=== PATIENT | female | born 1940 | race Hispanic/Latino ===

== ENCOUNTER 2019-05-10 23:14 | Emergency (ER) | payer MEDICARE, MEDICAID ==
[~2019-05-10] VITALS: Ht 157.5 cm; Wt 81.8 kg
[2019-05-10 23:53] LABS: HEMATOCRIT 42.7 % (37.0-47.0); HEMOGLOBIN 13.2 g/dl (12.0-16.0); IMMATURE GRANULOCYTES 0.2 % (0.0-5.0); MEAN CELL VOLUME 89.1 fL CALC (80.0-100.0); MEAN CORPUSCULAR HGB 27.6 pG CALC (26.0-32.0); MEAN CORPUSCULAR HGB CONC 30.9 g/L CALC (32.0-36.0); NEUT# 5.29 thou/uL (2.00-7.15); RED BLOOD COUNT 4.79 mill/uL (4.20-5.60); RED CELL DISTRI WIDTH 17.6 % (11.5-15.5)
[2019-05-11 00:21] LABS: ACT PARTIAL THROMBO TIME 27.1 SECONDS (20.0-32.5); PROTHROMBIN TIME 10.3 SECONDS (9.0-12.5)
[2019-05-11 00:22] LABS: ALBUMIN 4.5 g/dL (3.2-5.0); ALKALINE PHOSPHATASE 64 u/l (38-126); AMYLASE 52 u/l (30-110); ANION GAP 17 (6-22 (CALC)); BILIRUBIN, TOTAL 0.3 mg/dL (0.0-1.4); BUN 13 mg/dL (8-23); BUN/CREATININE RATIO 19 (12-20 (CALC)); CARBON DIOXIDE 28 mmol/l (22-30); CHLORIDE 99 mmol/l (95-108); CREATININE 0.7 mg/dL (0.5-1.0); GFR > 60 ML/MIN (>=60 (CALC)); GFR FOR AFR.AMER. > 60 ML/MIN (>=60 (CALC)); LIPASE 78 u/l (23-300); SGOT/AST 26 u/l (9-36); SODIUM 140 mmol/l (137-146); TOTAL PROTEIN 8.2 g/dL (6.3-8.2)
[2019-05-11 00:37] LABS: MYOGLOBIN 45 ng/mL (0 - 62)
[2019-05-11] MEDS ORDERED: TORADOL PO (00:54)
[2019-05-11 01:20] VITALS: BP 155/66
== END 2019-05-11 01:20 | disposition home or self-care (01) ==
LOC: ED 23:14
PROVIDERS: Family Medicine
DX: R07.89 Other chest pain (principal)

== ENCOUNTER 2019-09-24 | Emergency (ER) | payer MEDICARE, MEDICAID ==
[~2019-09-24] MED LIST: TORADOL PO
[2019-09-24 16:55] LABS: HEMATOCRIT 40.3 % (37.0-47.0); HEMOGLOBIN 12.7 g/dl (12.0-16.0); IMMATURE GRANULOCYTES 0.6 % (0.0-5.0); MEAN CELL VOLUME 86.7 fL CALC (80.0-100.0); MEAN CORPUSCULAR HGB 27.3 pG CALC (26.0-32.0); MEAN CORPUSCULAR HGB CONC 31.5 g/L CALC (32.0-36.0); NEUT# 6.84 thou/uL (2.00-7.15); RED BLOOD COUNT 4.65 mill/uL (4.20-5.60); RED CELL DISTRI WIDTH 14.9 % (11.5-15.5)
[2019-09-24 17:01] LABS: PROTHROMBIN TIME 10.4 SECONDS (9.0-12.5)
[2019-09-24 17:02] LABS: ALBUMIN 4.3 g/dL (3.2-5.0); ALKALINE PHOSPHATASE 60 u/l (38-126); ANION GAP 13 (6-22 (CALC)); BILIRUBIN, TOTAL 0.3 mg/dL (0.0-1.4); BUN 17 mg/dL (8-23); BUN/CREATININE RATIO 28 (12-20 (CALC)); CARBON DIOXIDE 28 mmol/l (22-30); CHLORIDE 102 mmol/l (95-108); CREATININE 0.6 mg/dL (0.5-1.0); GFR > 60 ML/MIN (>=60 (CALC)); GFR FOR AFR.AMER. > 60 ML/MIN (>=60 (CALC)); POTASSIUM 4.2 mmol/l (3.5-5.1); SGOT/AST 20 u/l (9-36); SODIUM 138 mmol/l (137-146); TOTAL PROTEIN 7.9 g/dL (6.3-8.2)
[2019-09-24] MEDS ORDERED: TESSALON PERLE100 MG PO (17:36)
[2019-09-24] MEDS ORDERED: AUGMENTIN500TAB PO (17:36)
[2019-09-24] MEDS ORDERED: RHINOCORT (17:36)
== END 2019-09-24 19:00 | disposition home or self-care (01) ==
DX: J40 Bronchitis, not specified as acute or chronic (principal); J32.9 Chronic sinusitis, unspecified; R06.02 Shortness of breath; R07.9 Chest pain, unspecified

== ENCOUNTER 2019-10-01 11:29 | Observation (INO) | payer MEDICARE, MEDICAID ==
[~2019-10-01] VITALS: Ht 157.5 cm; Wt 87.0 kg
[~2019-10-01 11:29] MED LIST changes: +AUGMENTIN500TAB PO; +RHINOCORT; +TESSALON PERLE100 MG PO
[2019-10-01 12:41] LABS: HEMOGLOBIN 13.2 g/dl (12.0-16.0); IMMATURE GRANULOCYTES 0.4 % (0.0-5.0); MEAN CELL VOLUME 86.6 fL CALC (80.0-100.0); MEAN CORPUSCULAR HGB 27.2 pG CALC (26.0-32.0); MEAN CORPUSCULAR HGB CONC 31.4 g/L CALC (32.0-36.0); NEUT# 6.64 thou/uL (2.00-7.15); RED BLOOD COUNT 4.85 mill/uL (4.20-5.60); RED CELL DISTRI WIDTH 14.6 % (11.5-15.5)
[2019-10-01 12:54] LABS: ANION GAP 14 (6-22 (CALC)); BUN 12 mg/dL (8-23); BUN/CREATININE RATIO 24 (12-20 (CALC)); CARBON DIOXIDE 28 mmol/l (22-30); CHLORIDE 101 mmol/l (95-108); CREATININE 0.5 mg/dL (0.5-1.0); GFR > 60 ML/MIN (>=60 (CALC)); GFR FOR AFR.AMER. > 60 ML/MIN (>=60 (CALC)); POTASSIUM 3.8 mmol/l (3.5-5.1); SODIUM 138 mmol/l (137-146)
[2019-10-01 18:35] VITALS: BP 153/87
[2019-10-01 23:17] VITALS: BP 112/81
[2019-10-02 03:55] VITALS: BP 120/57
[2019-10-02 07:45] VITALS: BP 111/60
[2019-10-02 11:10] VITALS: BP 117/57
[2019-10-02] MEDS ORDERED: TESSALON PER100 MG PO (13:46)
[2019-10-02] MEDS ORDERED: ZITHROMAX500 MG PO (13:46)
[2019-10-02] MEDS ORDERED: MEDDOSEPAK PO (13:46)
== END 2019-10-02 14:09 | disposition home or self-care (01) ==
LOC: ED 11:29 → ED-I 13:21 → ED 13:35 → MS2 13:36 → ED-I 13:36 → MS2 17:17
PROVIDERS: Family Medicine; ADMIT Internal Medicine; ATTEND Internal Medicine
DX: J20.9 Acute bronchitis, unspecified (principal); J44.0 Chronic obstructive pulmonary disease with (acute) lower respiratory infection; M19.90 Unspecified osteoarthritis, unspecified site; R03.0 Elevated blood-pressure reading, without diagnosis of hypertension
CPT/HCPCS: G0378

== ENCOUNTER 2019-10-06 11:53 | Emergency (ER) | payer MEDICARE, MEDICAID ==
[~2019-10-06 11:53] MED LIST changes: +MEDDOSEPAK PO; +TESSALON PER100 MG PO; +ZITHROMAX500 MG PO
== END 2019-10-06 13:04 | disposition left against medical advice (07) ==
LOC: LWOBS 13:04 → ED 13:04
DX: Z91.19 Patient's noncompliance with other medical treatment and regimen (principal)

== ENCOUNTER 2020-03-20 10:12 | Emergency (ER) | payer MEDICARE, MEDICAID ==
[~2020-03-20] VITALS: Ht 157.5 cm; Wt 100.0 kg
[2020-03-20] MEDS ORDERED: MEDDOSEPAK PO ×2 (11:32)
[2020-03-20] MEDS ORDERED: ULTRAM50 MG PO (11:32)
[2020-03-20] MEDS ORDERED: KEFLEX500 MG PO ×2 (11:46)
[2020-03-20 11:54] VITALS: BP 158/59
== END 2020-03-20 11:52 | disposition home or self-care (01) ==
LOC: ED 10:12
DX: M19.042 Primary osteoarthritis, left hand (principal); M77.9 Enthesopathy, unspecified

== ENCOUNTER 2020-03-23 11:40 | Emergency (ER) | payer MEDICARE, MEDICAID ==
[~2020-03-23] VITALS: Ht 157.5 cm; Wt 92.0 kg
[~2020-03-23 11:40] MED LIST changes: +KEFLEX500 MG PO; +ULTRAM50 MG PO
[2020-03-23] MEDS ORDERED: TURMERIC500 MG PO (12:05)
[2020-03-23 13:31] VITALS: BP 143/71
== END 2020-03-23 13:31 | disposition home or self-care (01) ==
LOC: ED 11:40
DX: M77.9 Enthesopathy, unspecified (principal); M89.49 Other hypertrophic osteoarthropathy, multiple sites; F41.9 Anxiety disorder, unspecified; F32.9 Major depressive disorder, single episode, unspecified

== ENCOUNTER 2020-03-25 09:43 | Observation (INO) | payer MEDICARE, MEDICAID ==
[~2020-03-25] VITALS: Ht 157.5 cm; Wt 100.0 kg
[~2020-03-25 09:43] MED LIST changes: +TURMERIC500 MG PO
[2020-03-25 11:52] LABS: URINE BILIRUBIN - DIPSTICK NEGATIVE (NEGATIVE); URINE BLOOD DIPSTICK NEGATIVE (NEGATIVE); URINE COLOR YELLOW; URINE GLUCOSE - DIPSTICK NEGATIVE (NEGATIVE); URINE KETONE TRACE mg/dL (NEGATIVE); URINE LEUK ESTERASE NEGATIVE (NEGATIVE); URINE NITRITE - DIPSTICK NEGATIVE (Negative); URINE PROTEIN - DIPSTICK NEGATIVE (NEG-TRACE); URINE SPECIFIC GRAVITY 1.025; URINE UROBILINOGEN - DIPSTICK 0.2 E.U./dL (0.2)
[2020-03-25] MEDS ORDERED: DIVALPROEX SOD250 MG PO (11:54)
[2020-03-25] MEDS ORDERED: MEMANTINE HYDROC5 MG PO (11:54)
[2020-03-25] MEDS ORDERED: K-TAB20 MEQ PO (11:55)
[2020-03-25] MEDS ORDERED: LASIX20 MG PO (11:55)
[2020-03-25] MEDS ORDERED: TRAMADOL HCL50 MG PO (11:56)
[2020-03-25] MEDS ORDERED: MELATONIN5 M6 PO (11:56)
[2020-03-25] MEDS ORDERED: DONEPEZIL5 MG PO (11:57)
[2020-03-25] MEDS ORDERED: TURMERIC500 MG PO (11:58)
[2020-03-25] MEDS ORDERED: KEFLEX500 MG PO (11:58)
[2020-03-25 16:03] VITALS: BP 167/71
[2020-03-25] MEDS ORDERED: MECLIZINE25 MG PO (17:17)
[2020-03-25] MEDS ORDERED: SM ASA CHLD81 MG PO (17:24)
== END 2020-03-25 18:22 | disposition home health service (06) ==
LOC: ED 09:43 → ED-I 11:37 → ED 12:17 → ED-I 12:18 → MS2 13:05 → ED-I 13:23
PROVIDERS: Family Medicine; ADMIT Internal Medicine; ATTEND Internal Medicine
DX: G45.9 Transient cerebral ischemic attack, unspecified (principal); R42 Dizziness and giddiness; F03.90 Unspecified dementia, unspecified severity, without behavioral disturbance, psychotic disturbance, mood disturbance, and anxiety; G47.00 Insomnia, unspecified; I50.9 Heart failure, unspecified; F41.9 Anxiety disorder, unspecified; F32.9 Major depressive disorder, single episode, unspecified; R44.3 Hallucinations, unspecified; M19.90 Unspecified osteoarthritis, unspecified site; Z53.1 Procedure and treatment not carried out because of patient's decision for reasons of belief and group pressure

== ENCOUNTER 2020-03-28 20:46 | Emergency (ER) | payer MEDICARE, MEDICAID ==
[~2020-03-28] VITALS: Ht 157.5 cm; Wt 100.0 kg
[~2020-03-28 20:46] MED LIST changes: +DIVALPROEX SOD250 MG PO; +DONEPEZIL5 MG PO; +K-TAB20 MEQ PO; +LASIX20 MG PO; +MECLIZINE25 MG PO; +MELATONIN5 M6 PO; +MEMANTINE HYDROC5 MG PO; +SM ASA CHLD81 MG PO; +TRAMADOL HCL50 MG PO
[2020-03-28] MEDS ORDERED: LASIX20 MG PO (21:40)
[2020-03-28 22:10] VITALS: BP 164/77
== END 2020-03-28 22:10 | disposition home or self-care (01) ==
LOC: ED 20:46
DX: R60.0 Localized edema (principal); I50.9 Heart failure, unspecified

== ENCOUNTER 2020-04-09 11:36 | Emergency (ER) | payer MEDICARE, MEDICAID ==
[~2020-04-09] VITALS: Ht 157.5 cm; Wt 80.0 kg
[2020-04-09 12:35] VITALS: BP 117/61
== END 2020-04-09 13:45 | disposition home or self-care (01) ==
LOC: ED 11:36
DX: Z03.89 Encounter for observation for other suspected diseases and conditions ruled out (principal); F41.9 Anxiety disorder, unspecified; F32.9 Major depressive disorder, single episode, unspecified

== ENCOUNTER 2020-05-04 19:41 | Emergency (ER) | payer MEDICARE, MEDICAID ==
[~2020-05-04] VITALS: Ht 157.5 cm; Wt 82.0 kg
[2020-05-04] MEDS ORDERED: MELOXICAM15 MG PO (20:42)
[2020-05-04] MEDS ORDERED: MEMANTINE HYDROC5 MG PO (20:42)
[2020-05-04] MEDS ORDERED: DEPAKOTE ER250 M1 PO (20:43)
[2020-05-04] MEDS ORDERED: MECLIZINE25 MG PO (20:44)
[2020-05-04] MEDS ORDERED: FLEXERIL PO (22:03)
[2020-05-04] MEDS ORDERED: NAPROXEN500 MG PO (22:03)
[2020-05-04 22:16] VITALS: BP 140/61
== END 2020-05-04 22:14 | disposition home or self-care (01) ==
LOC: ED 19:41
DX: S23.3XXA Sprain of ligaments of thoracic spine, initial encounter (principal); I50.9 Heart failure, unspecified; X58.XXXA Exposure to other specified factors, initial encounter

== ENCOUNTER 2020-06-07 15:40 | Observation (INO) | payer MEDICARE, MEDICAID ==
[~2020-06-07] VITALS: Ht 157.5 cm; Wt 83.0 kg
[~2020-06-07 15:40] MED LIST changes: +DEPAKOTE ER250 M1 PO; +FLEXERIL PO; +MELOXICAM15 MG PO; +NAPROXEN500 MG PO
--- NOTE | 2020-06-07 16:10 | NUR ---
PATIENT TO ROOM STATING DARK STOOLS WHEN GOING TO BATHROOM. PATIENT REFUSING AND LAB STUDIES OR ANYTHING INVASIVE AT THIS TIME STATING RELIGOUS PREFERENCE. PRACTIONER AT BEDSIDE FOR MELANIE
[2020-06-07 16:57] LABS: HEMATOCRIT 40.8 % (37.0-47.0); HEMOGLOBIN 13.2 g/dl (12.0-16.0); RED BLOOD COUNT 4.48 mill/uL (4.20-5.60)
[2020-06-07 16:58] LABS: BASO% 0 % (0-3); EOS% 0 % (0-8); LYMPH% 32 % (15-41); MEAN CELL VOLUME 91.1 fL CALC (80.0-100.0); MEAN CORPUSCULAR HGB 29.5 pG CALC (26.0-32.0); MEAN CORPUSCULAR HGB CONC 32.4 g/dL CAL (32.0-36.0); MONO% 7 % (2-13); NEUT% 61 % (42-76); PLATELET COUNT 294 thou/uL (130-400); RED CELL DISTRI WIDTH 14.1 % (11.5-15.5)
--- NOTE | 2020-06-07 17:00 | NUR ---
ASSISTED TO BEDPAN.
[2020-06-07 17:13] LABS: ALBUMIN 3.9 g/dL (3.2-5.0); ALKALINE PHOSPHATASE 55 u/l (38-126); ANION GAP 11 (6-22 (CALC)); BILIRUBIN, TOTAL 0.2 mg/dL (0.0-1.4); BUN 12 mg/dL (8-23); BUN/CREATININE RATIO 19 (12-20 (CALC)); CARBON DIOXIDE 29 mmol/l (22-30); CHLORIDE 105 mmol/l (95-108); CREATININE 0.6 mg/dL (0.5-1.0); GFR > 60 ML/MIN (>=60 (CALC)); GFR FOR AFR.AMER. > 60 ML/MIN (>=60 (CALC)); LIPASE 79 u/l (23-300); POTASSIUM 4.2 mmol/l (3.5-5.1); SGOT/AST 19 u/l (9-36); SODIUM 141 mmol/l (137-146); TOTAL PROTEIN 6.8 g/dL (6.3-8.2)
--- NOTE | 2020-06-07 18:00 | NUR ---
MODERATE AMOUNT RED/BLACK STOOL IN BED FRIEDMAN. OCCULT BLOOD POSITIVE.
--- NOTE | 2020-06-07 18:14 | NUR ---
MLP AT BEDSIDE TO DISCUSS RESULTS AND POC.
--- NOTE | 2020-06-07 18:25 | NUR ---
MD AT BEDSIDE TO DISCUSS RESULTS AND POC.
--- NOTE | 2020-06-07 18:53 | NUR ---
REPORT GIVEN TO DAMEON KELLY.
--- NOTE | 2020-06-07 19:24 | NUR ---
A/O W/P/D SKIN DENIES WEAKNESS.NO VISION CHANGES NO SWEATS.NSR NO ECTOPY
--- NOTE | 2020-06-07 20:45 | NUR ---
W/P/D SKIN UP TO RR TO VOID NO WEAKINESSES NO DIZZINESS AMB WITH HER [id number] WITHOUT DIFF.
[2020-06-07 21:02] VITALS: BP 121/79
--- NOTE | 2020-06-07 21:03 | NUR ---
PT ARRIVES TO UNIT FROM ED AT 2103, ADMITTED TO ROOM 267.
--- NOTE | 2020-06-07 21:05 | NUR ---
PHONE REPORT TO NURSE VALENCIA ON MS
--- NOTE | 2020-06-07 21:10 | NUR ---
PT [id number] TO MS RM 267 IN STABLE CONDITION
--- NOTE | 2020-06-07 23:08 | NUR ---
PT PASSING MODERATE AMOUNTS BLOODY STOOL. PT CONFIRMS SHE IS A JEHOVAS WITNESS AND OBJECTS TO RECEIVING OF BLOOD AND BLOOD PRODUCTS. EXPLAINED TO PT SHE WILL BE HAVING AN EGD AND COLONOSCOPY. BOWEL PREP PROVIDED. PT IS RESISTANT TO TAKING BOWEL PREP. EXPLAINED TO PT IMPORTANCE OF BOWEL PREP FOR COLNOSCOPY TO BE EFFECTIVE. PT IS ANXIOUS ABOUT BLOOD IN STOOL BUT RESISTANT TO BOWEL PREP.
[2020-06-08] VITALS (7 sets, daily range): BP systolic 133–167; BP diastolic 60–89
--- NOTE | 2020-06-08 01:00 | NUR ---
PT DRINKING BOWEL PREP SLOWLY, CON'T TO ASK IF SHE HAS TO FINISH IT ALL. PT ENCOURAAGED TO DRINK MUCH AND QUICKLY SHE CAN TOLERATE.
--- NOTE | 2020-06-08 03:00 | NUR ---
PT HAS MADE LITTLE PROGRESS WITH BOWEL PREP, CON'T TO BE RESISTANT, ASKS AGAIN WHY SHE NEEDS TO TAKE BOWEL PREP. EXPLAINED RATIONALE AGAIN. PT ASKS TO SPEAK WITH DOCTOR ABOUT WHAT IS WRONG WITH HER AND WHAT SHES "HAVING DONE". INFORMED PT DR. CRUZ WOULD EXPLAIN PROCEDURE TO HER PRIOR TO HER SIGNING CONSENT.
--- NOTE | 2020-06-08 04:30 | NUR ---
ARTISTIC DIRECTOR CUONG REPORTS HE WAS UNABLE TO DRAW AM LABS AND HE WILL BE PASSING IT ON TO NEXT ARTISTIC DIRECTOR.
--- NOTE | 2020-06-08 06:26 | NUR ---
PT HAS FINISHED APPROXIMATELY HALF HER BOWEL PREP. STOOL IS NOW DARK BROWN THIN LIQUID W/ SOME SEDIMENT. NO MORE GROSS BLOOD NOTED. PT ENCOURAGED TO CON'T TO DRINK HER BOWEL PREP. PT ASKING FOR COFFEE AND BREAKFAST.
--- NOTE | 2020-06-08 07:15 | NUR ---
SPOKE WITH PACU ABOUT PATIENTS ASSESMENT, DIFFICULTY WITH BOWEL PREP AND THAT SHE CONTINUES TO TRY AND DRINK HER BOWEL PREP. ALSO ADVISED PACU THAT PT IS A JEHOVAHS WITNESS AND DOES NOT TAKE BLOOR OR BLOOD PRODUCTS.
[2020-06-08 08:10] LABS: HEMATOCRIT 40.8 % (37.0-47.0); HEMOGLOBIN 12.2 g/dl (12.0-16.0)
--- NOTE | 2020-06-08 08:10 | NUR ---
RECIEVED REPORT FROM LETICIA SIMMONS. PT RESTING IN SEMI FOWLERS POSITION UPON ENTERING ROOM. INTRODUCED SELF TO PT AND DISCUSSED POC. VITALS AND ASSESSMENT COMPLETED. PT IS A/O TO SELF RESPIRATIONS AND EVEN AND UNLABORED WIHT NO SIGSN OF DISTRESS NOTED. LUNG SOUNDS ARE CLEAR. HEART RHYTHM IS NORMAL WITH TELE IN PLACE. BOWEL SOUND SARE ACTIVE IN ALL QUADRANTS, LAST REPORTED BM 06/07/2020. RADIAL AND PEDAL PULSES ARE STRONG WITH NORMAL CPAILLARY REFILL.#20G IN LAC RUNNING WIHT IVF PER ORDER, SITE APPEARS HEALTHY AND PATENT. PT DENEIS ANY PAIN OR DIS COMFORTS AT THIS ITME. PT STATED " WHERE AM I AND WHY AM I HERE" WRITTER REOIENTED PT TO PLACE AND TIME. WRITTER EXPLAINED TO PT THAT BLOOD WAS PRESENT IN HER STOOL AND A PLANNED EGD AND COLONSCOPY WAS TO OCCUR. PT VERBAILZED UNDERSTANDING. WRITTER EDUCATED PT ON THE NEED OF DRINKING GO LIGHTLY. PT VERBAILZED UNDERSTANDING. ORDER OF RESPIRATORY PCR, SPECIMEN COLLECTED. ORDER FOR URINE, SPECIMEN OBTAINED. ALL SAFETY PRECAUTIONS ARE IN PLACE WIHT CALL LIGHT IN REACH. WILL CONTINUE TO MONITOR
[2020-06-08 10:23] LABS: URINE BILIRUBIN - DIPSTICK NEGATIVE (NEGATIVE); URINE BLOOD DIPSTICK LARGE (NEGATIVE); URINE GLUCOSE - DIPSTICK NEGATIVE (NEGATIVE); URINE KETONE NEGATIVE (NEGATIVE); URINE PROTEIN - DIPSTICK TRACE mg/dL (NEG-TRACE); URINE SPECIFIC GRAVITY 1.015; URINE UROBILINOGEN - DIPSTICK 0.2 E.U./dL (0.2)
[2020-06-08 10:30] LABS: URINE COLOR DK. YELLOW; URINE LEUK ESTERASE MODERATE (NEGATIVE); URINE NITRITE - DIPSTICK POSITIVE (Negative)
--- NOTE | 2020-06-08 10:30 | NUR ---
WRITTER NOTIFIED THAT EGD AND COLONOSCOPY WOULD BE SCHEDULED FOR 06/09/2020 AROUND 1200. PT NOTIFIED. ORDERS FOR CLEAR LIQUID DIET WITH NO RED RECIEVED.
[2020-06-08 10:31] LABS: URINE EPITHELIAL CELLS MODERATE EPI/hpf (0-FEW); URINE RBC 50-100 RBC/hpf (0-5)
[2020-06-08 10:32] LABS: URINE BACTERIA MODERATE hpf
--- NOTE | 2020-06-08 11:14 | NUR ---
REPORTED BP OF 167/77. PT RESTING IN SEMI FOWLERS POSITION TALKING ON PHONE. WILL CONTINUE TO MONITOR
--- NOTE | 2020-06-08 12:06 | NUR ---
PT RESTING IN SEMI FOWLERS POSITION TALKING ON PHONE UPON ENTERING ROOM. RESPIRATIONS ARE EVEN AND UNLABORED WITH NO SIGNS OF DISTRESS NOTED. PT RE-EDUCATED ON NEED FOR DRINKING GOLYTLEY PREP. PT VERBAILZED UNDERSTANDING. HALF STILL REMAINING. PT DENIES ANY PAIN OR NEEDS AT THIS TIME. ALL SAFETY PRECAUTIONS ARE IN PLACE WITH CALL LIGHT IN REACH. CHRISTINA CONTINUE TO MONITOR
--- NOTE | 2020-06-08 12:15 | NUR ---
WRITTER ASSISTED PT BACK FROM BATHROOM. STOOL IS LIGHT HERNANDEZ IN COLOR. PT EDUCATED ON NEED TO FINISH GOLYTLEY. PT VERBALIZED UNDERSTANDING. ALL SAFETY PRECAUTIONS ARE IN PLACE WITH CALL LIGHT IN REACH. CHRISTINA CONTINUE TO MONITOR
--- NOTE | 2020-06-08 13:34 | NUR ---
REASSESSMENT OF BP RESUTLING IN 133/60. PT SITTING IN CHAIR WATCHING TV. PT DENIES ANY PAIN OR DISCOMFORTS. ALL SAFETY PRECAUTIONS ARE IN PLACE WITH CALL LIGHT IN REACH.W ILL CONTINUE TO MONITOR
--- NOTE | 2020-06-08 16:30 | NUR ---
PT RESTING IN CHAIR. PT IS A/O WITH SOME CONFUSION. RESPIRATIONS ARE EVEN AND UNLABORED WITH NO SIGNS OF DSTRESS NOTED. IVF AND PROTONIX DRIP RUNNING WITH EASE. PT DENIES ANY PAIN OR DISCOMFORTS AT THIS TIME. PT EDUCATED ON NEED OF DRINKING GOLYTELY. PT VERBAILZED UNDERSTANDING. PT IS STILL HAVIG HERNANDEZ BLOODY STOOLS. ALL SFAETY PRECAUTIONS ARE IN PLACE WIHT CALL LIGHT IN REACH. WILL CONTINUE TO MONITOR
--- NOTE | 2020-06-08 19:00 | NUR ---
REPORT RECEIVED FROM Maryanne GERBER RN, CARE OF PTS ASSUMED AT THIS TIME.
--- NOTE | 2020-06-08 20:00 | NUR ---
PT HAS SEEMINGLY NOT COMPLETED ANY OF HER BOWEL PREP TODAY THEIR IS APPROXIMATELY THE SAME AMOUNT LEFT THIS AM. APPROXIMATELY HALF OF JUG. RE-EDUCATED PT ON IMPORTANCE OF BOWEL PREP FOR PROCEDURE. PT STATES SHE HAS NO IDEA WHAT "THEY ARE GOING TO DO TO HER TOMORROW", REMINDED PT THAT DR. MIRANDA SPOKE WITH HER TODAY AND EXPLAINED THE PROCEDURE. PT BECOMES AGITATED AND YELLS THAT SHE DID NOT SEE HER DOCTOR TODAY AND HER DOCTOR IS DR. WANG. PT BEGINS TO FRANTICALLY DESCRIBE HER GI BLEEDING AND THAT SHE IS A JEHOVAHS WITNESS AND IF SHE BLEEDS TO MUCH SHE WILL . ATTEMPTED TO CALM PT AND AGAIN ENCOURAGE COMPLIANCE WITH BOWEL PREP. PT AGREES AND 3 SMALL CUPS ARE SERVED FOR HER. PT STATES "THESE WILL BE GONE IN 20 MINUTES"
--- NOTE | 2020-06-08 21:00 | NUR ---
PT ON HER CELLPHONE SPEAKING VERY LOUDLY IN TURKISH AND PACING IN ROOM, PT HAS THROWN AWAY CUPS IN WHICH BOWEL PREP HAD BEEN SERVED FOR HER. SUSPECT PT MAY HAVE DUMPED THEM OUT.
--- NOTE | 2020-06-08 21:13 | NUR ---
CALL RECEIVED FROM A JHON LEYVA, IDENTIFIES HERSELF FAMILY FRIEND AND PTS CAREGIVER. EXPRESSES CONCERNS REGARDING IF PT IS RECEIVING HER PSYCH MEDICATIONS. SHE REPORTS LIST OF MEDICATIONS PRESCRIBED BY PTS PSYCHIATRIST, DANIELITO LIU. HOME MEDICATIN LIST UPDATED. JHON REPORTS THAT PT CALLED HER AND SEEMS AGITATED AND "LIKE SHE HASNT BEEN TAKING HER MEDICATIONS" STATES PT IS "BIPOLAR BUT DOESN'T KNOW IT" AND SHE "NEEDS TO BE ON HER MEDICINE".
--- NOTE | 2020-06-08 21:30 | NUR ---
PT TELL Sapna DE JESUS CNA THAT SHE NEEDS HER IV REMOVED IMMEDIATELY. SPOKE WITH Alexandru ELY APRN REGARDING PTS CONFUSION AND AGITATION. ORDER FOR SEROQUEL RECEIVED.
--- NOTE | 2020-06-08 22:00 | NUR ---
PT IN BATHROOM, FRANTICALLY SCRUBBING HER PANTS. PT IS UPSET BECAUSE SHE GOT BLOOD ON HER PANTS. CALMED PT DOWN. PT TOOK SEROQUEL AND NAMENDA, SEE E-MAR.
[2020-06-09] VITALS: BP 149/61
--- NOTE | 2020-06-09 00:50 | NUR ---
IV PUMP ALARMING OCCLUSION. PT HAS DISCONNECTED IV AND TIED TUBING IN A KNOT. TUBING INTIED AND IV RECONNECTED. IV SITE REMAINS INTACT AND PATENT. PT DENIES KNOTING OR DISCONNECTING IV.
[2020-06-09] MEDS ORDERED: DIVALPROEX SOD250 M1 PO (00:59)
[2020-06-09] MEDS ORDERED: K-DUR/KLOR-CON20 MEQ PO (01:01)
[2020-06-09] MEDS ORDERED: FUROSEMIDE20 MG PO (01:02)
[2020-06-09 04:00] VITALS: BP 155/78
--- NOTE | 2020-06-09 04:04 | NUR ---
PT FOUND TO HAVE PULLED OUT IV SITE. PT DENIES PULLING IV. CATH INTACT.
--- NOTE | 2020-06-09 06:49 | NUR ---
SPOKE W/ ANURADHA RN IN PACU REGARDING PTS REFUSING TO SIGN CONSENT AND TAKE BOWEL PREP WELL PHLEBOTMIST FAILED ATTEMPT TO DRAW AM LABS, R FA 22G STARTED X1 ATTEMPT, ATTEMPTED TO DRAW BLOOD WORK FROM IV INSUFFICIENT BLOOD FLOW TO COLLECT LABS. FURTHER ATTEMPTS HELD TO PRESERVE INTEGRITY OF IV. PT IS DROWSY BUT ROUSABLE. MARIBELL LING IN PACU ANESTHESIA WANTS CASE MANAGMENT TO BE INVOLVED WITH OBTAINING CONSENT AND ONLY EGD WILL BE DONE TODAY.
--- NOTE | 2020-06-09 07:52 | NUR ---
SRIRAM BENITEZ RN COME IN AND SPEAK TO THE PT. ENSURING HER SHE IS IN THE HOSPITAL. AND NEEDING TO HAVE A PROCEDURE COMPLETED. CASE MANAGEMENT INVOLVED TO GET CONSENT SIGNED.
[2020-06-09 08:26] LABS: MEAN CELL VOLUME 89.9 fL CALC (80.0-100.0); MEAN CORPUSCULAR HGB 27.8 pG CALC (26.0-32.0); RED BLOOD COUNT 4.67 mill/uL (4.20-5.60); RED CELL DISTRI WIDTH 14.7 % (11.5-15.5)
[2020-06-09 08:30] VITALS: BP 144/71
--- NOTE | 2020-06-09 08:30 | NUR ---
ASSESSMENT IS COMPLETED: IV SITE IS FREE FROM REDNESS OR EDEMA. HR IS REG,PULSES ARE STRONG X4, ABD IS SOFT WITH ACTIVE BS. BREATH SOUNDS ARE CLEAR BILATERALLY, CONTINUE TO OSBERVFE AND MONITOR,
[2020-06-09 10:30] VITALS: BP 146/78
--- NOTE | 2020-06-09 10:46 | NUR ---
SPOKE WITH CHAPIS DODSON FROM OR. DR CRUZ IS GOING TO [facility] AND WILL NOT BE ABLE TO DO PROCEDURE TODAY, WILL DO THIS TOMORROW IF CONSENT IS OBTAINED.
--- NOTE | 2020-06-09 12:16 | NUR ---
SPOKE WITH CHAPIS DODSON AND BRIAN VILLANUEVA RE: PT AND A DIET , AND THE PLAN FOR THE PT. EXPLAINED TO PT ABOUT DR CRUZ AND WILL DO PROCEDUREE TOMORROW.PT IS WANTING TO KNOW WHY WE HAVE TO WAIT. STATING" I SIGNED OMETHING YESTERDAY, ALSO SPOKE WITH MY DAUGHTER AND SHE KNOWS WHAT IS GOING ON AND WILL JUST DO IT".
--- NOTE | 2020-06-09 12:22 | NUR ---
SPOKE WITH DR CRUZ , CAN GOVE CLEAR LIQUIDS. IF CONSENT FOR BOTH THEN GIVE THE MAG CITRATE TONIGHT AND NPO AFTER MIDNIGHT.
--- NOTE | 2020-06-09 12:45 | NUR ---
PT REMAINS SITTING IN THECHAIR. NO DISTRESS NOTED. IV SITE IS FREE FROM REDNESS OR EDEMA. CONTINUE TO OBSERVE AND MONITOR.
--- NOTE | 2020-06-09 12:46 | NUR ---
SRIRAM BENITEZ RN SPEAK WITH PT RE: PROCEDURES TOMORROW. PT IS AGREEABLE, WANTING TO EAT.. INFORMED OR THE CONVERSATION WITH PT AND DR CRUZ,.WILL BE SENDING ANESTHESIA TO SEE PT. PER PROCESS CONTROL PROGRAMMER, HAS 3 DR'S THAT IS DEEMING PT COMPETENT TO MAKE DECISIONS.
--- NOTE | 2020-06-09 13:40 | NUR ---
ANESTHESIA IN SPEAKING WITH PT. AND GETTING CONSENT. EMMANUEL KELLY IN INTERPRETING FOR PT. EXPLAINED PROCEDURES OF ENDO AND COLONOSCOPY. WILL BE DONE TOMORROW.
--- NOTE | 2020-06-09 13:46 | NUR ---
ANESTHESIA ABLE TO OBTAIN CONSENT FOR THE PROCEDURES IN THE AM. EXPLAINED IN DETAIL WHAT IS HAPPENING. PT IS AGREEABLE.
[2020-06-09 15:00] VITALS: BP 132/70
--- NOTE | 2020-06-09 15:06 | NUR ---
IV SITE BECAME PUFFY. ATTEMPT X2 UNSUCCESSFUL. PT STATED" IT HURT TOO BAD" CONTINUE TO OSBERVE AND MONITOR.
--- NOTE | 2020-06-09 15:50 | NUR ---
IV SITE AGAIN ATTEMPTED X2, SWATTED AND DISLODGED THE IV SITE . CONTINUE TO OBSERVE AND MONITOR.
--- NOTE | 2020-06-09 16:15 | NUR ---
PT IV SITE OBTAINED AFTER 2ND ATTEMPT IN RH WITH #22. BY MARSHAL KELLY. CONTINUE TO OBSERVE AND MONITOR.
--- NOTE | 2020-06-09 16:52 | NUR ---
pt has been sitting in the chair. pt stated" no blood in my stool
[2020-06-09 18:34] VITALS: BP 162/87
--- NOTE | 2020-06-09 20:09 | NUR ---
PT. SITTING UP IN BED AND IS ALERT TO SELF AND PLACE, BUT IS FORGETFUL AND REPETETIVE. SPEAKING ALOT ON HER RESTORATIONIST AT THIS TIME. PT. IS RE-ORIENTED TO POC AND WILL NEED RE-INFORCEMENT OFTEN. PT. RE-EDUCATED ON NPO STATUS AT MIDNIGHT. IV SITE PATENT AT THIS TIME. PT. REPORTING NO BLEEDING FROM RECTUM. ENCOURAGED TO CALL FOR ANY NEEDS/PAIN. DENIES ANY ABDOMINAL DISCOMFORT. CALL LIGHT IS IN REACH. WILL CONTINUE TO MONITOR.
--- NOTE | 2020-06-09 21:30 | NUR ---
PT. SITTING UP IN CHAIR AND REMINDED TO FINISH MAG CITRATE; VERBALIZES UNDERSTANDING. WILL CONTINUE TO MONITOR.
--- NOTE | 2020-06-09 23:30 | NUR ---
PT. IS ASSISTED TO AND FROM THE BATHROOM AND VOIDED AND HAD A CLEAR BM. ASSISTED BACK INTO BED AND BED ALARM SET FORE SAFETY. PT. IS AWARE OF NPO DIET AFTER MIDNIGHT. PT. IS FORGETFUL. CALL LIGHT IS IN REACH.
[2020-06-10 00:05] VITALS: BP 158/74
[2020-06-10 04:24] VITALS: BP 152/84
--- NOTE | 2020-06-10 07:45 | NUR ---
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 AROUND 10:00 OR 10:15.
[2020-06-10 08:30] VITALS: BP 163/85
--- NOTE | 2020-06-10 08:30 | NUR ---
ASSESSMENT IS COMPLETED: IV SITE IS FREE FROM REDNESS OR EDEMA. HR IS REG,PULSES ARE STRONG X4, ABD IS SOFT WITH ACTIVE BS. BREATH SOUNDS ARE CLEAR BILATERALLY. TELE MONITOR IN PLACE. CONTINUE TO OSBERVE AND MONITOR.
[2020-06-10 10:50] VITALS: BP 148/69
--- NOTE | 2020-06-10 10:52 | NUR ---
CALLED CHAPIS IN OR INQUIRING WHEN THEY ARE GETTING PT. WAS TOLD 1 HOUR
--- NOTE | 2020-06-10 11:18 | NUR ---
OR STAFF CAME AND TRANSPORTING PT TO OR WITH FRIEND IN THE ROOM.
[2020-06-10 13:55] VITALS: BP 141/62
--- NOTE | 2020-06-10 14:00 | NUR ---
PT RETURNED FROM OR VIA STRETCHER . IMMEDIATELY WENT TO THE BATHROOM. UPON ARRIVAL.NO DISTRESS NOTED. IV SITE IS FREE FROM REDNESS OR EDEMA. CONTINEU TO OBSERVE AND MONITOR.
--- NOTE | 2020-06-10 14:00 | NUR ---
PT VS UPON RETURNING FROM OR IS : 157/74, 93 97.2.
--- NOTE | 2020-06-10 14:08 | NUR ---
INFORMING ELIZA A FRIEND RETURN FROM OR.
--- NOTE | 2020-06-10 17:30 | NUR ---
DISCHARGE INSTRUCTIONS GIVEN TO PT WAS INTERPREETED BY EMMANUEL KELLY , FRIEND IN THE ROOM. IV SITE WAS DISCONTINUED CATHETER INTACT, NO REDNESS OR EDEMA.
--- NOTE | 2020-06-10 18:13 | NUR ---
PT BEING DISCHARGED
--- NOTE | 2020-06-10 18:15 | NUR ---
Discharge instructions given. Patient verbalizes understanding of same. Discharged in stable condition via Wheelchair to Home with family. All belongings sent with pt.
== END 2020-06-10 18:13 | disposition home health service (06) ==
LOC: ED 15:40 → ED-I 16:32 → ED 19:43 → MS2 19:44
PROVIDERS: Nurse Practitioner Family; ADMIT Internal Medicine; ATTEND Internal Medicine
PROC: 0DJD8ZZ Inspection of Lower Intestinal Tract, Via Natural or Artificial Opening Endoscopic (ICD-10-PCS; principal; 2020-06-10)
PROC: 0DJ08ZZ Inspection of Upper Intestinal Tract, Via Natural or Artificial Opening Endoscopic (ICD-10-PCS; 2020-06-10)
DX: K57.31 Diverticulosis of large intestine without perforation or abscess with bleeding (principal); Q43.9 Congenital malformation of intestine, unspecified; K64.8 Other hemorrhoids; K31.7 Polyp of stomach and duodenum; K44.9 Diaphragmatic hernia without obstruction or gangrene; N39.0 Urinary tract infection, site not specified; I10 Essential (primary) hypertension; F03.90 Unspecified dementia, unspecified severity, without behavioral disturbance, psychotic disturbance, mood disturbance, and anxiety; F41.9 Anxiety disorder, unspecified; F32.9 Major depressive disorder, single episode, unspecified; I50.9 Heart failure, unspecified; Z20.828 Contact with and (suspected) exposure to other viral communicable diseases
CPT/HCPCS: J1756; S0164

== ENCOUNTER 2021-01-13 10:37 | Emergency (ER) | payer MEDICARE, MEDICAID ==
[~2021-01-13] VITALS: Ht 157.5 cm; Wt 174.0 kg
[~2021-01-13 10:37] MED LIST changes: +DIVALPROEX SOD250 M1 PO; +FUROSEMIDE20 MG PO; +K-DUR/KLOR-CON20 MEQ PO
[2021-01-13 14:14] LABS: HEMATOCRIT 44.9 % (37.0-47.0); IMMATURE GRANULOCYTES 0.3 % (0.0-5.0); MEAN CORPUSCULAR HGB 28.1 pG CALC (26.0-32.0); MEAN CORPUSCULAR HGB CONC 31.2 g/dL CAL (32.0-36.0); NEUT# 10.98 thou/uL (2.00-7.15); RED BLOOD COUNT 4.99 mill/uL (4.20-5.60); RED CELL DISTRI WIDTH 14.5 % (11.5-15.5)
[2021-01-13 14:18] LABS: URINE BILIRUBIN - DIPSTICK NEGATIVE (NEGATIVE); URINE BLOOD DIPSTICK NEGATIVE (NEGATIVE); URINE COLOR YELLOW; URINE GLUCOSE - DIPSTICK NEGATIVE (NEGATIVE); URINE KETONE 15 mg/dL (NEGATIVE); URINE LEUK ESTERASE NEGATIVE (NEGATIVE); URINE NITRITE - DIPSTICK NEGATIVE (Negative); URINE PH 6.5 (4.5-8.0); URINE PROTEIN - DIPSTICK NEGATIVE (NEG-TRACE); URINE SPECIFIC GRAVITY 1.015; URINE UROBILINOGEN - DIPSTICK 0.2 E.U./dL (0.2)
[2021-01-13 14:22] LABS: ALBUMIN 4.4 g/dL (3.2-5.0); ALKALINE PHOSPHATASE 66 u/l (38-126); ANION GAP 13 (6-22 (CALC)); BUN 13 mg/dL (8-23); BUN/CREATININE RATIO 23 (12-20 (CALC)); CARBON DIOXIDE 31 mmol/l (22-30); CHLORIDE 97 mmol/l (95-108); CREATININE 0.6 mg/dL (0.5-1.0); GFR > 60 ML/MIN (>=60 (CALC)); GFR FOR AFR.AMER. > 60 ML/MIN (>=60 (CALC)); LIPASE 50 u/l (23-300); POTASSIUM 4.6 mmol/l (3.5-5.1); SGOT/AST 20 u/l (9-36); SODIUM 137 mmol/l (137-146); TOTAL PROTEIN 7.9 g/dL (6.3-8.2)
[2021-01-13 14:27] LABS: BILIRUBIN, TOTAL 0.5 mg/dL (0.0-1.4)
[2021-01-13] MEDS ORDERED: ZOFRAN4 MG/TAB PO (17:39)
[2021-01-13 17:45] VITALS: BP 163/74
== END 2021-01-13 18:00 | disposition home or self-care (01) ==
LOC: ED 10:37
PROVIDERS: Emergency Medicine
DX: K52.9 Noninfective gastroenteritis and colitis, unspecified (principal); F41.9 Anxiety disorder, unspecified; F32.9 Major depressive disorder, single episode, unspecified; I50.9 Heart failure, unspecified; J44.9 Chronic obstructive pulmonary disease, unspecified

== ENCOUNTER 2021-02-22 14:31 | Emergency (ER) | payer MEDICARE, MEDICAID ==
[~2021-02-22] VITALS: Ht 157.5 cm; Wt 95.0 kg
[~2021-02-22 14:31] MED LIST changes: +ZOFRAN4 MG/TAB PO
[2021-02-22 16:42] VITALS: BP 138/82
== END 2021-02-22 18:00 | disposition home or self-care (01) ==
LOC: ED 14:31
PROC: 2W3CX1Z Immobilization of Right Lower Arm using Splint (ICD-10-PCS; principal; 2021-02-22)
DX: S52.501A Unspecified fracture of the lower end of right radius, initial encounter for closed fracture (principal); S52.611A Displaced fracture of right ulna styloid process, initial encounter for closed fracture; S00.83XA Contusion of other part of head, initial encounter; S00.211A Abrasion of right eyelid and periocular area, initial encounter; J44.9 Chronic obstructive pulmonary disease, unspecified; I50.9 Heart failure, unspecified; F32.9 Major depressive disorder, single episode, unspecified; F41.9 Anxiety disorder, unspecified; W01.0XXA Fall on same level from slipping, tripping and stumbling without subsequent striking against object, initial encounter; Y92.009 Unspecified place in unspecified non-institutional (private) residence as the place of occurrence of the external cause

== ENCOUNTER 2021-02-25 18:27 | Emergency (ER) | payer MEDICARE, MEDICAID ==
[~2021-02-25] VITALS: Ht 157.5 cm; Wt 85.0 kg
[2021-02-25 20:21] VITALS: BP 118/62
== END 2021-02-25 20:42 | disposition home or self-care (01) ==
LOC: ED 18:27
DX: G56.02 Carpal tunnel syndrome, left upper limb (principal); F41.9 Anxiety disorder, unspecified; F32.9 Major depressive disorder, single episode, unspecified; I50.9 Heart failure, unspecified; J44.9 Chronic obstructive pulmonary disease, unspecified; S62.101D Fracture of unspecified carpal bone, right wrist, subsequent encounter for fracture with routine healing; W19.XXXD Unspecified fall, subsequent encounter

== ENCOUNTER 2021-03-04 16:39 | Emergency (ER) | payer MEDICARE, MEDICAID ==
[~2021-03-04] VITALS: Ht 157.5 cm; Wt 80.0 kg
[2021-03-04 17:12] VITALS: BP 172/105
== END 2021-03-04 17:21 | disposition left against medical advice (07) ==
LOC: ED 16:39
DX: R07.9 Chest pain, unspecified (principal); J44.9 Chronic obstructive pulmonary disease, unspecified; F41.9 Anxiety disorder, unspecified; F32.9 Major depressive disorder, single episode, unspecified; I50.9 Heart failure, unspecified; Z91.19 Patient's noncompliance with other medical treatment and regimen

== ENCOUNTER 2021-03-06 12:02 | Emergency (ER) | payer MEDICARE, MEDICAID ==
[~2021-03-06] VITALS: Ht 157.5 cm; Wt 80.0 kg
[2021-03-06 12:30] VITALS: BP 144/66
== END 2021-03-06 13:30 | disposition home or self-care (01) ==
LOC: ED 12:02
PROC: 2W3CX1Z Immobilization of Right Lower Arm using Splint (ICD-10-PCS; principal; 2021-03-06)
DX: R07.89 Other chest pain (principal); Z46.89 Encounter for fitting and adjustment of other specified devices; J44.9 Chronic obstructive pulmonary disease, unspecified; I50.9 Heart failure, unspecified; F41.9 Anxiety disorder, unspecified; F32.9 Major depressive disorder, single episode, unspecified; Z98.890 Other specified postprocedural states

== ENCOUNTER 2022-08-14 11:53 | Emergency (ER) | payer MEDICARE, MEDICAID ==
[~2022-08-14] VITALS: Ht 157.5 cm; Wt 77.0 kg
[2022-08-14 14:35] LABS: BASO% 0.6 % (0-3); EOS% 1.6 % (0-8); HEMATOCRIT 44.2 % (37.0-47.0); HEMOGLOBIN 14.3 g/dl (12.0-16.0); IMMATURE GRANULOCYTES 0.1 % (0.0-5.0); LYMPH% 29.4 % (15-41); MEAN CELL VOLUME 90.6 fL CALC (80.0-100.0); MEAN CORPUSCULAR HGB 29.3 pG CALC (26.0-32.0); MEAN CORPUSCULAR HGB CONC 32.4 g/dL CAL (32.0-36.0); MONO% 9.8 % (2-13); NEUT# 5.01 thou/uL (2.00-7.15); NEUT% 58.5 % (42-76); RED BLOOD COUNT 4.88 mill/uL (4.20-5.60); RED CELL DISTRI WIDTH 14.4 % (11.5-15.5)
[2022-08-14 14:44] LABS: ALBUMIN 4.4 g/dL (3.2-5.0); ALKALINE PHOSPHATASE 51 u/l (38-126); ANION GAP 9 (6-22 (CALC)); BUN 14 mg/dL (8-23); BUN/CREATININE RATIO 24 (12-20 (CALC)); CARBON DIOXIDE 30 mmol/l (22-30); CHLORIDE 107 mmol/l (95-108); CREATININE 0.6 mg/dL (0.5-1.0); GFR FOR AFR.AMER. > 60 ML/MIN (>=60 (CALC)); GFR OTHER RACES > 60 ML/MIN (>=60 (CALC)); POTASSIUM 3.9 mmol/l (3.5-5.1); SGOT/AST 25 u/l (9-36); SODIUM 143 mmol/l (137-146); TOTAL PROTEIN 7.9 g/dL (6.3-8.2)
[2022-08-14 14:51] LABS: BILIRUBIN, TOTAL 0.1 mg/dL (0.0-1.4)
[2022-08-14 15:52] VITALS: BP 147/77
== END 2022-08-14 16:08 | disposition home or self-care (01) ==
LOC: ED 11:53
PROVIDERS: Emergency Medicine
DX: S09.90XA Unspecified injury of head, initial encounter (principal); F41.9 Anxiety disorder, unspecified; F32.A Depression, unspecified; I50.9 Heart failure, unspecified; J44.9 Chronic obstructive pulmonary disease, unspecified; W19.XXXA Unspecified fall, initial encounter; Y92.009 Unspecified place in unspecified non-institutional (private) residence as the place of occurrence of the external cause

== ENCOUNTER 2022-09-14 12:59 | Emergency (ER) | payer MEDICARE, MEDICAID ==
[~2022-09-14] VITALS: Ht 157.5 cm; Wt 75.0 kg
[2022-09-14 15:14] VITALS: BP 149/101
[2022-09-14 15:28] VITALS: BP 151/81
[2022-09-14 15:30] VITALS: BP 155/80
[2022-09-14 15:39] LABS: BASO% 0.4 % (0-3); EOS% 1.6 % (0-8); HEMATOCRIT 44.8 % (37.0-47.0); HEMOGLOBIN 14.3 g/dl (12.0-16.0); IMMATURE GRANULOCYTES 0.2 % (0.0-5.0); LYMPH% 28.3 % (15-41); MEAN CELL VOLUME 90.7 fL CALC (80.0-100.0); MEAN CORPUSCULAR HGB 28.9 pG CALC (26.0-32.0); MEAN CORPUSCULAR HGB CONC 31.9 g/dL CAL (32.0-36.0); MONO% 7.7 % (2-13); NEUT# 5.87 thou/uL (2.00-7.15); NEUT% 61.8 % (42-76); RED BLOOD COUNT 4.94 mill/uL (4.20-5.60); RED CELL DISTRI WIDTH 14.4 % (11.5-15.5)
[2022-09-14 15:44] LABS: URINE BILIRUBIN - DIPSTICK NEGATIVE (NEGATIVE); URINE BLOOD DIPSTICK NEGATIVE (NEGATIVE); URINE COLOR YELLOW; URINE GLUCOSE - DIPSTICK NEGATIVE (NEGATIVE); URINE KETONE NEGATIVE (NEGATIVE); URINE LEUK ESTERASE NEGATIVE (NEGATIVE); URINE PH 5.5 (4.5-8.0); URINE PROTEIN - DIPSTICK NEGATIVE (NEG-TRACE); URINE SPECIFIC GRAVITY 1.025; URINE UROBILINOGEN - DIPSTICK 0.2 E.U./dL (0.2)
[2022-09-14 15:47] LABS: URINE NITRITE - DIPSTICK NEGATIVE (Negative)
[2022-09-14 15:53] LABS: ALBUMIN 4.8 g/dL (3.2-5.0); ALKALINE PHOSPHATASE 64 u/l (38-126); ANION GAP 13 (6-22 (CALC)); BUN 11 mg/dL (8-23); BUN/CREATININE RATIO 17 (12-20 (CALC)); CARBON DIOXIDE 29 mmol/l (22-30); CHLORIDE 99 mmol/l (95-108); CREATININE 0.6 mg/dL (0.5-1.0); GFR FOR AFR.AMER. > 60 ML/MIN (>=60 (CALC)); GFR OTHER RACES > 60 ML/MIN (>=60 (CALC)); LIPASE 61 u/l (23-300); MAGNESIUM 1.9 mg/dL (1.6-2.3); POTASSIUM 3.7 mmol/l (3.5-5.1); SGOT/AST 28 u/l (9-36); SODIUM 138 mmol/l (137-146); TOTAL PROTEIN 8.6 g/dL (6.3-8.2)
[2022-09-14 15:57] LABS: BILIRUBIN, TOTAL 0.3 mg/dL (0.02-1.3)
[2022-09-14 16:30] VITALS: BP 153/83
[2022-09-14 17:00] VITALS: BP 142/76
[2022-09-14 18:16] VITALS: BP 142/76
== END 2022-09-14 18:30 | disposition home or self-care (01) ==
LOC: ED 12:59
PROVIDERS: Internal Medicine
DX: R53.1 Weakness (principal); F03.90 Unspecified dementia, unspecified severity, without behavioral disturbance, psychotic disturbance, mood disturbance, and anxiety; J44.9 Chronic obstructive pulmonary disease, unspecified; I50.9 Heart failure, unspecified; F32.A Depression, unspecified; F41.9 Anxiety disorder, unspecified

== ENCOUNTER 2023-01-07 12:42 | Emergency (ER) | payer MEDICARE, MEDICAID ==
[~2023-01-07] VITALS: Ht 157.5 cm; Wt 100.0 kg
[2023-01-07 12:55] VITALS: BP 150/75
[2023-01-07 13:01] VITALS: BP 144/68
[2023-01-07] MEDS ORDERED: DONEPEZIL10 MG PO (13:02)
[2023-01-07] MEDS ORDERED: DEPAKOTE250 MG PO (13:02)
[2023-01-07 13:17] LABS: BASO% 0.3 % (0-3); EOS% 1.2 % (0-8); HEMATOCRIT 42.7 % (37.0-47.0); HEMOGLOBIN 13.4 g/dl (12.0-16.0); IMMATURE GRANULOCYTES 0.4 % (0.0-5.0); LYMPH% 20.9 % (15-41); MEAN CELL VOLUME 90.9 fL CALC (80.0-100.0); MEAN CORPUSCULAR HGB 28.5 pG CALC (26.0-32.0); MEAN CORPUSCULAR HGB CONC 31.4 g/dL CAL (32.0-36.0); MONO% 8.2 % (2-13); NEUT# 8.28 thou/uL (2.00-7.15); RED BLOOD COUNT 4.7 mill/uL (4.20-5.60); RED CELL DISTRI WIDTH 13.6 % (11.5-15.5)
[2023-01-07 13:51] LABS: ALBUMIN 4.4 g/dL (3.2-5.0); ALKALINE PHOSPHATASE 60 u/l (38-126); ANION GAP 13 (6-22 (CALC)); BILIRUBIN, TOTAL 0.4 mg/dL (0.02-1.3); BUN 9 mg/dL (8-23); BUN/CREATININE RATIO 19 (12-20 (CALC)); CARBON DIOXIDE 29 mmol/l (22-30); CHLORIDE 102 mmol/l (95-108); CREATININE 0.5 mg/dL (0.5-1.0); GFR FOR AFR.AMER. > 60 ML/MIN (>=60 (CALC)); GFR OTHER RACES > 60 ML/MIN (>=60 (CALC)); POTASSIUM 3.7 mmol/l (3.5-5.1); SGOT/AST 24 u/l (9-36); SODIUM 140 mmol/l (137-146); TOTAL PROTEIN 7.9 g/dL (6.3-8.2)
[2023-01-07 15:04] VITALS: BP 139/82
[2023-01-07 15:31] VITALS: BP 128/55
[2023-01-07 16:44] VITALS: BP 128/55
== END 2023-01-07 17:30 | disposition home or self-care (01) ==
LOC: ED 12:42
PROVIDERS: Family Medicine
DX: J44.9 Chronic obstructive pulmonary disease, unspecified (principal); I50.9 Heart failure, unspecified; F32.A Depression, unspecified; F41.9 Anxiety disorder, unspecified; Z20.822 Contact with and (suspected) exposure to COVID-19

== ENCOUNTER 2023-01-14 16:38 | Observation (INO) | payer MEDICARE, MEDICAID ==
[2023-01-14] VITALS (15 sets, daily range): BP systolic 123–160; BP diastolic 64–94
[~2023-01-14] VITALS: Ht 157.5 cm; Wt 80.8 kg
[~2023-01-14 16:38] MED LIST changes: +DEPAKOTE250 MG PO; +DONEPEZIL10 MG PO
--- NOTE | 2023-01-14 16:39 | NUR ---
PT TO ROOM VIA WC. FAMILY/FRIEND AT BEDSIDE. PATIENT ABLE TO TRANSFER TO BED WITH ONE ASSIST. PATIENT PLACED ON 2 L NC. DENIES WEARING O2 AT HOME.
--- NOTE | 2023-01-14 16:40 | NUR ---
PATIENT WAS 84% O2 SATURATION ON ROOM AIR UPON ARRIVAL.
[2023-01-14 17:15] LABS: BASO% 0.4 % (0-3); EOS% 1.5 % (0-8); HEMATOCRIT 40.8 % (37.0-47.0); HEMOGLOBIN 12.6 g/dl (12.0-16.0); IMMATURE GRANULOCYTES 0.6 % (0.0-5.0); LYMPH% 17.2 % (15-41); MEAN CELL VOLUME 90.5 fL CALC (80.0-100.0); MEAN CORPUSCULAR HGB 27.9 pG CALC (26.0-32.0); MEAN CORPUSCULAR HGB CONC 30.9 g/dL CAL (32.0-36.0); NEUT# 9.43 thou/uL (2.00-7.15); NEUT% 69.3 % (42-76); RED BLOOD COUNT 4.51 mill/uL (4.20-5.60); RED CELL DISTRI WIDTH 13.9 % (11.5-15.5)
[2023-01-14 17:22] LABS: ALBUMIN 4.1 g/dL (3.2-5.0); ALKALINE PHOSPHATASE 74 u/l (38-126); ANION GAP 10 (6-22 (CALC)); BILIRUBIN, TOTAL 0.4 mg/dL (0.02-1.3); BUN 9 mg/dL (8-23); BUN/CREATININE RATIO 16 (12-20 (CALC)); CARBON DIOXIDE 33 mmol/l (22-30); CHLORIDE 99 mmol/l (95-108); CREATININE 0.6 mg/dL (0.5-1.0); GFR FOR AFR.AMER. > 60 ML/MIN (>=60 (CALC)); GFR OTHER RACES > 60 ML/MIN (>=60 (CALC)); SGOT/AST 32 u/l (9-36); SODIUM 137 mmol/l (137-146); TOTAL PROTEIN 7.9 g/dL (6.3-8.2)
--- NOTE | 2023-01-14 17:43 | NUR ---
PATIENT WAS ASYMPTOMATIC HOWEVER HR ELEVATED TO 160BPM. TRIED PURSED BREATHING AND BAREING DOWN TO NO AVAIL. REPEAT EKG COMPLETED AND IV LOPRESSOR ORDERED AND GIVEN. HR DECREASED TO 94. PATIENT RESPONDED WELL.
--- NOTE | 2023-01-14 18:45 | NUR ---
PATIENT RESTING. NO DISTRESS.
--- NOTE | 2023-01-14 19:45 | NUR ---
PATIENT PREPARED FOR ADMISSION. V/S STABLE.
--- NOTE | 2023-01-14 20:15 | NUR ---
VERBAL REPORT CALLED TO LYRIC KELLY. PATIENT WAS BEING PREPARED FOR TRANSPORT UPSTAIRS. HR ELEVATED AGAIN TO 150. PATIENT REMAINS ASYMPTOMATIC. DR. KEMP ORDERED AN ADDITIONAL 5MG OF IV LOPRESSOR AND 50MG PO OF LOPRESSOR. MARTIN KELLY TRANSPORTED THE PATIENT UPSTAIRS WHEN HR WENT BACK DOWN TO 88.
--- NOTE | 2023-01-14 20:35 | NUR ---
PT ARRIVED TO UNIT VIA STRECTER ACCOMPANIED BY ER STAFF. PT A&OX2 WHEN ASKING ORENTATION QUESTIONS PT STATES I DONT NEED TO KNOW THAT, EVERYONE KNOWS ME HERE. WHEN ASKED PT TO VERIFY NAME AND BIRTHDAY PT PROVIDE DIFFERENT BIRTHDAY THAN THE ONE ON FILE. I ASK PT IF HAD A FORM OF ID TO VERIFY BIRTHDAY ON FILE. PT STATED I AM A US [employer] AND I HAVE SERVE THIS CONTRY I DONT KNOW WHY YOU NEED MY ID, EVEN IN MY BANK ACCOUNT KNOWS THAT. I EXPLAIN PT THE PORPUSE TO CHECK HER ID IS JUST TO VERIFY HER BIRTHDAY ON FILE. PT STATED IS BECAUSE THEY CONFUSED MY BIRTHDAY WITH MY SISTER. PT PROVIDE ME HER ID AND IS THE SAME IN FILE 1940. ADMISSION COMPLETED. 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 AND POINTS TO THE JOHNNY. PT IV TO LAC 20G SL PATENT AND FLUSHES WELL. BREATHING EVEN AND UNLABORED. LUNG SOUNDS ARE COARSE TO BILATERAL LOWER LOBES. BOWELS SOUNDS ACTIVE X4 LAST BM ON 01/14/23. PT IS ON TELE 05. SKIN IS INTACT. DENIES PROBLEMS WITH URINATION. EDEMA 2+ NOTED TO BILATERAL LOWER EXTREMITIES. PT ON 4L OF OXYGEN 92%. NO NEED OR CONCERN VOICED AT THIS TIME. PT FRIEND AT BEDSIDE CALL LIGHT IN REACH AND BED IN LOWEST POSITION.
--- NOTE | 2023-01-14 21:36 | NUR ---
PT TRIED TO REMOVE TELE MONITOR. PT EDUCATED ON THE PORPUSE OF THE TELE, DUE TO INCREASE OF HEART RATE IN THE ER. 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 I REEDUCATED PT ON THE PORPUSE THE TELE. PT ASK HOW LONG SHE WILL HAVE IT ON. PT EDUCATED IT WILL BE TAKE OFF WHEN DISCHARGE HOME. PT AGREE TO KEEP IT ON FOR THE NIGHT. CALL LIGHT IN REACH. FRIEND AT BEDSIDE.
--- NOTE | 2023-01-14 22:10 | NUR ---
PT TOOK HER OXYGEN OFF SATURATION 90%. PT EDUCATED ON THE PORPUSE OF THE OXYGEN. PT INDICATE UNDERSTADING AND STATES SHE WILL PUT IT BACK WHEN SHE IS BACK IN BED.
--- NOTE | 2023-01-14 22:10 | NUR ---
PT REFUSED LEVONOX. PT EDUCATED ON THE PORPUSE OF THIS MED. 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
--- NOTE | 2023-01-14 22:12 | NUR ---
PT NENIES TAKING ANY MEDICATIONS.
[2023-01-14] MEDS ORDERED: CLONAZEP ODT0.25 MG PO (22:14)
[2023-01-14] MEDS ORDERED: DIVALPROEX SOD250 MG PO (22:17)
--- NOTE | 2023-01-14 22:19 | NUR ---
PT FRIEND WAS ABLE TO RECALL SOME OF HER MEDS.
[2023-01-15 00:28] VITALS: BP 142/93
--- NOTE | 2023-01-15 00:28 | NUR ---
PT TOOK TELE OFF. PT STATES SHE DOES NOT WANT IT. PT EDUCATED ON THE PORPUSE OF THE TELE MONITOR. PT CONTINUE TO REFUSED.
[2023-01-15 04:15] VITALS: BP 104/42
--- NOTE | 2023-01-15 05:06 | NUR ---
PT SITING IN RECLINER. AWAKE. DENIES PAIN OR DICOMFORT BREATHING IS EVEN AND ULANORED NO S/S OF DISTRESS. CALL LIT IN REACH.
[2023-01-15 06:42] VITALS: BP 140/63
--- NOTE | 2023-01-15 07:25 | NUR ---
PT RESTING IN HIGH FOWLERS POSITION. FRIEND AT BEDSIDE. HEART RHYTHM NO TELE. RESPIRAITONS ON ROOM AIR. PT REFUSED OXYGEN SAT OF 92%. IV SITE NOTED. PT DENIES ADDITIONAL NEEDS AT THE TIME ALL SAFETY PRECAUTIONS IN PLACE.
[2023-01-15 09:15] LABS: HEMATOCRIT 41.3 % (37.0-47.0); MEAN CELL VOLUME 91.2 fL CALC (80.0-100.0); MEAN CORPUSCULAR HGB 28.7 pG CALC (26.0-32.0); MEAN CORPUSCULAR HGB CONC 31.5 g/dL CAL (32.0-36.0); RED BLOOD COUNT 4.53 mill/uL (4.20-5.60)
[2023-01-15 09:38] LABS: ALBUMIN 4.2 g/dL (3.2-5.0); ALKALINE PHOSPHATASE 76 u/l (38-126); ANION GAP 13 (6-22 (CALC)); BILIRUBIN, TOTAL 0.4 mg/dL (0.02-1.3); BUN 13 mg/dL (8-23); BUN/CREATININE RATIO 23 (12-20 (CALC)); CARBON DIOXIDE 29 mmol/l (22-30); CHLORIDE 101 mmol/l (95-108); CREATININE 0.6 mg/dL (0.5-1.0); GFR FOR AFR.AMER. > 60 ML/MIN (>=60 (CALC)); GFR OTHER RACES > 60 ML/MIN (>=60 (CALC)); MAGNESIUM 2.3 mg/dL (1.6-2.3); POTASSIUM 4.3 mmol/l (3.5-5.1); SGOT/AST 35 u/l (9-36); SODIUM 139 mmol/l (137-146); TOTAL PROTEIN 8.3 g/dL (6.3-8.2)
--- NOTE | 2023-01-15 12:24 | NUR ---
PT RESTING WITH FRIEND AT BEDSIDE, PT DENIES ADDITIONAL NEEDS AT THE TIME ALL SAFETY PRECAUTIONS IN PLACE.
--- NOTE | 2023-01-15 15:36 | NUR ---
Discharge instructions given. Patient verbalizes understanding of same. Discharged in stable condition via Wheelchair to Home with staff. All belongings sent with pt. IV REMOVED NO TELE.
[2023-01-16] MEDS ORDERED: PREDNISONE50 MG PO (15:58)
[2023-01-16] MEDS ORDERED: ALL DAY10 MG PO (15:58)
== END 2023-01-15 15:36 | disposition home health service (06) ==
LOC: ED 16:38 → MS2 19:29
PROVIDERS: Family Medicine; ADMIT Internal Medicine; ATTEND Internal Medicine
DX: J96.01 Acute respiratory failure with hypoxia (principal); J44.9 Chronic obstructive pulmonary disease, unspecified; I47.1 Supraventricular tachycardia; F03.92 Unspecified dementia, unspecified severity, with psychotic disturbance; I50.9 Heart failure, unspecified; F31.9 Bipolar disorder, unspecified; F41.9 Anxiety disorder, unspecified; Z60.2 Problems related to living alone
CPT/HCPCS: J1650

== ENCOUNTER 2023-01-16 13:08 | Emergency (ER) | payer MEDICARE, MEDICAID ==
[2023-01-16] VITALS (7 sets, daily range): BP systolic 130–151; BP diastolic 67–88
[~2023-01-16] VITALS: Ht 157.5 cm; Wt 77.0 kg
[~2023-01-16 13:08] MED LIST changes: +CLONAZEP ODT0.25 MG PO
[2023-01-16] MEDS ORDERED: ALL DAY10 MG PO (15:58)
[2023-01-16] MEDS ORDERED: PREDNISONE50 MG PO (15:58)
== END 2023-01-16 16:19 | disposition home or self-care (01) ==
LOC: ED 13:08
DX: R07.9 Chest pain, unspecified (principal); F41.9 Anxiety disorder, unspecified; F32.A Depression, unspecified; I50.9 Heart failure, unspecified; J44.9 Chronic obstructive pulmonary disease, unspecified

== ENCOUNTER 2023-03-27 16:00 | Emergency (ER) | payer MEDICARE, MEDICAID ==
[~2023-03-27] VITALS: Ht 157.5 cm; Wt 80.7 kg
[~2023-03-27 16:00] MED LIST changes: +ALL DAY10 MG PO; +PREDNISONE50 MG PO
[2023-03-27 16:13] VITALS: BP 154/83
[2023-03-27 16:54] LABS: BASO% 0.4 % (0-3); EOS% 1.5 % (0-8); HEMATOCRIT 41.5 % (37.0-47.0); HEMOGLOBIN 13.1 g/dl (12.0-16.0); IMMATURE GRANULOCYTES 0.3 % (0.0-5.0); LYMPH% 26.7 % (15-41); MEAN CORPUSCULAR HGB CONC 31.6 g/dL CAL (32.0-36.0); MONO% 10.2 % (2-13); NEUT# 6.03 thou/uL (2.00-7.15); NEUT% 60.9 % (42-76); RED BLOOD COUNT 4.51 mill/uL (4.20-5.60); RED CELL DISTRI WIDTH 14.2 % (11.5-15.5)
[2023-03-27 17:45] LABS: ALBUMIN 4.4 g/dL (3.2-5.0); ALKALINE PHOSPHATASE 57 u/l (38-126); ANION GAP 13 (6-22 (CALC)); BILIRUBIN, TOTAL 0.4 mg/dL (0.02-1.3); BUN 11 mg/dL (8-23); BUN/CREATININE RATIO 22 (12-20 (CALC)); CARBON DIOXIDE 30 mmol/l (22-30); CHLORIDE 102 mmol/l (95-108); CREATININE 0.5 mg/dL (0.5-1.0); GFR FOR AFR.AMER. > 60 ML/MIN (>=60 (CALC)); GFR OTHER RACES > 60 ML/MIN (>=60 (CALC)); POTASSIUM 3.7 mmol/l (3.5-5.1); SGOT/AST 30 u/l (9-36); SODIUM 141 mmol/l (137-146); TOTAL PROTEIN 8.1 g/dL (6.3-8.2)
[2023-03-27 18:06] VITALS: BP 154/83
== END 2023-03-27 18:56 | disposition home or self-care (01) ==
LOC: ED 16:00
PROVIDERS: Family Medicine
DX: G62.9 Polyneuropathy, unspecified (principal); I50.9 Heart failure, unspecified; J44.9 Chronic obstructive pulmonary disease, unspecified; F41.9 Anxiety disorder, unspecified; F32.A Depression, unspecified

== ENCOUNTER 2023-04-26 08:27 | Emergency (ER) | payer MEDICARE, MEDICAID ==
[2023-04-26 08:50] VITALS: BP 137/78
== END 2023-04-26 08:50 | disposition left against medical advice (07) ==
LOC: ED 08:27
DX: Z53.21 Procedure and treatment not carried out due to patient leaving prior to being seen by health care provider (principal)

== ENCOUNTER 2023-04-29 16:20 | Emergency (ER) | payer MEDICARE, MEDICAID ==
[~2023-04-29] VITALS: Ht 157.5 cm; Wt 90.7 kg
[2023-04-29 16:30] VITALS: BP 121/67
[2023-04-29 17:00] VITALS: BP 114/62
== END 2023-04-29 17:06 | disposition home or self-care (01) ==
LOC: ED 16:20
DX: M79.89 Other specified soft tissue disorders (principal); F41.9 Anxiety disorder, unspecified; F32.A Depression, unspecified; I50.9 Heart failure, unspecified; J44.9 Chronic obstructive pulmonary disease, unspecified; Z98.890 Other specified postprocedural states

== ENCOUNTER 2023-10-08 17:17 | Observation (INO) | payer MEDICARE, MEDICAID ==
[~2023-10-08] VITALS: Ht 157.5 cm; Wt 81.6 kg
[2023-10-08] VITALS (10 sets, daily range): BP systolic 47–157; BP diastolic 30–86
[2023-10-08] MEDS ORDERED: ASPIRIN 81 MG/TAB PO ONE (17:30)
[2023-10-08 17:52] LABS: BASO% 0.5 % (0-3); EOS% 1.5 % (0-8); HEMATOCRIT 47.3 % (37.0-47.0); HEMOGLOBIN 14.5 g/dl (12.0-16.0); IMMATURE GRANULOCYTES 0.1 % (0.0-5.0); LYMPH% 24.2 % (15-41); MEAN CELL VOLUME 91.3 fL CALC (80.0-100.0); MEAN CORPUSCULAR HGB CONC 30.7 g/dL CAL (32.0-36.0); MONO% 7.5 % (2-13); NEUT# 6.2 thou/uL (2.00-7.15); NEUT% 66.2 % (42-76); RED BLOOD COUNT 5.18 mill/uL (4.20-5.60); RED CELL DISTRI WIDTH 14.2 % (11.5-15.5)
[2023-10-08 18:09] LABS: ALBUMIN 4.2 g/dL (3.2-5.0); ALKALINE PHOSPHATASE 57 u/l (38-126); ANION GAP 16 (6-22 (CALC)); BILIRUBIN, TOTAL 0.3 mg/dL (0.02-1.3); BUN 13 mg/dL (8-23); BUN/CREATININE RATIO 22 (12-20 (CALC)); CARBON DIOXIDE 23 mmol/l (22-30); CHLORIDE 104 mmol/l (95-108); CREATININE 0.6 mg/dL (0.5-1.0); GFR FOR AFR.AMER. > 60 ML/MIN (>=60 (CALC)); GFR OTHER RACES > 60 ML/MIN (>=60 (CALC)); POTASSIUM 3.5 mmol/l (3.5-5.1); SGOT/AST 29 u/l (9-36); SODIUM 139 mmol/l (137-146); TOTAL PROTEIN 8.1 g/dL (6.3-8.2)
[2023-10-08] MEDS ORDERED: NITROGLYCERIN 0.4 MG/TAB SL PRN (20:00)
[2023-10-08] MEDS ORDERED: MAGNESIUM HYDROXIDE 30 ML UDC PO PRN (20:00)
[2023-10-08] MEDS ORDERED: ACETAMINOPHEN 325 MG/TAB PO PRN (20:00)
[2023-10-08] MEDS ORDERED: ENOXAPARIN SODIUM 40 MG/0.4 ML SYR SC SCH (21:00)
[2023-10-08] MEDS ORDERED: DiphenhydrAMINE HCL 50 MG/ML SDV IM ONE (21:10)
[2023-10-08] MEDS ORDERED: HALOPERIDOL LACTATE 5 MG/ML SDV IM ONE (21:10)
[2023-10-09] VITALS (17 sets, daily range): BP systolic 98–164; BP diastolic 63–90
[2023-10-09 07:55] LABS: BASO% 0.5 % (0-3); EOS% 1.1 % (0-8); HEMATOCRIT 43.2 % (37.0-47.0); HEMOGLOBIN 13.7 g/dl (12.0-16.0); IMMATURE GRANULOCYTES 0.2 % (0.0-5.0); LYMPH% 23.7 % (15-41); MEAN CELL VOLUME 88.2 fL CALC (80.0-100.0); MEAN CORPUSCULAR HGB CONC 31.7 g/dL CAL (32.0-36.0); MONO% 10.3 % (2-13); NEUT# 6.01 thou/uL (2.00-7.15); NEUT% 64.2 % (42-76); RED BLOOD COUNT 4.9 mill/uL (4.20-5.60); RED CELL DISTRI WIDTH 14.4 % (11.5-15.5)
[2023-10-09] MEDS ORDERED: LABETALOL HCL 20 MG/ 4 ML CARTRG IV SCH (08:00)
[2023-10-09 08:19] LABS: ANION GAP 10 (6-22 (CALC)); BUN 10 mg/dL (8-23); BUN/CREATININE RATIO 18 (12-20 (CALC)); CHLORIDE 104 mmol/l (95-108); CREATININE 0.6 mg/dL (0.5-1.0); GFR FOR AFR.AMER. > 60 ML/MIN (>=60 (CALC)); GFR OTHER RACES > 60 ML/MIN (>=60 (CALC)); MAGNESIUM 1.9 mg/dL (1.6-2.3); POTASSIUM 3.8 mmol/l (3.5-5.1); SODIUM 140 mmol/l (137-146)
[2023-10-09 08:21] LABS: CARBON DIOXIDE 30 mmol/l (22-30)
[2023-10-09] MEDS ORDERED: METOPROLOL TARTRATE 5 MG/5 ML VIAL IV SCH (08:30)
[2023-10-09] MEDS ORDERED: METOPROLOL TARTRATE 25 MG/TAB PO SCH (09:00)
[2023-10-09] MEDS ORDERED: LORazepam 2 MG/ML IM SCH (14:30)
[2023-10-09] MEDS ORDERED: LORazepam 0.5 MG/TAB PO SCH (16:15)
[2023-10-09] MEDS ORDERED: ASPIRIN 81 MG/TAB PO SCH (16:24)
[2023-10-09] MEDS ORDERED: ATORVASTATIN CALCIUM 40 MG/TAB PO SCH (21:00)
[2023-10-09] MEDS ORDERED: QUEtiapine FUMERATE 25 MG/TAB PO SCH (21:14)
[2023-10-10 06:04] LABS: BASO% 0.4 % (0-3); EOS% 1.1 % (0-8); HEMATOCRIT 41.9 % (37.0-47.0); HEMOGLOBIN 13.4 g/dl (12.0-16.0); IMMATURE GRANULOCYTES 0.1 % (0.0-5.0); LYMPH% 27.5 % (15-41); MEAN CELL VOLUME 89.3 fL CALC (80.0-100.0); MEAN CORPUSCULAR HGB 28.6 pG CALC (26.0-32.0); NEUT# 5.96 thou/uL (2.00-7.15); NEUT% 59.9 % (42-76); RED BLOOD COUNT 4.69 mill/uL (4.20-5.60); RED CELL DISTRI WIDTH 14.1 % (11.5-15.5)
[2023-10-10 06:20] LABS: ANION GAP 11 (6-22 (CALC)); BUN 11 mg/dL (8-23); BUN/CREATININE RATIO 17 (12-20 (CALC)); CARBON DIOXIDE 28 mmol/l (22-30); CHLORIDE 102 mmol/l (95-108); CREATININE 0.6 mg/dL (0.5-1.0); GFR FOR AFR.AMER. > 60 ML/MIN (>=60 (CALC)); GFR OTHER RACES > 60 ML/MIN (>=60 (CALC)); POTASSIUM 3.9 mmol/l (3.5-5.1); SODIUM 138 mmol/l (137-146)
[2023-10-10] MEDS ORDERED: OLANZapine 5 MG/TAB PO SCH (13:30)
[2023-10-10] MEDS ORDERED: QUEtiapine FUMERATE 25 MG/TAB PO SCH (16:00)
[2023-10-10 20:27] VITALS: BP 128/67
[2023-10-11] VITALS (17 sets, daily range): BP systolic 76–170; BP diastolic 45–134
[2023-10-11] MEDS ORDERED: METOPROLOL TARTRATE 25 MG/TAB PO SCH (02:25)
[2023-10-11] MEDS ORDERED: OLANZapine 5 MG/TAB PO SCH (06:30)
[2023-10-11] MEDS ORDERED: METOPROLOL SUCCINATE 50 MG/TAB PO SCH (06:30)
[2023-10-11 11:29] LABS: BASO% 0.3 % (0-3); EOS% 0.7 % (0-8); HEMATOCRIT 44.8 % (37.0-47.0); HEMOGLOBIN 14.6 g/dl (12.0-16.0); IMMATURE GRANULOCYTES 0.3 % (0.0-5.0); LYMPH% 15.2 % (15-41); MEAN CELL VOLUME 87.8 fL CALC (80.0-100.0); MEAN CORPUSCULAR HGB 28.6 pG CALC (26.0-32.0); MEAN CORPUSCULAR HGB CONC 32.6 g/dL CAL (32.0-36.0); MONO% 11.6 % (2-13); NEUT# 8.25 thou/uL (2.00-7.15); NEUT% 71.9 % (42-76); RED BLOOD COUNT 5.1 mill/uL (4.20-5.60); RED CELL DISTRI WIDTH 14.2 % (11.5-15.5)
[2023-10-11 12:02] LABS: ANION GAP 15 (6-22 (CALC)); BUN 10 mg/dL (8-23); BUN/CREATININE RATIO 17 (12-20 (CALC)); CARBON DIOXIDE 24 mmol/l (22-30); CHLORIDE 102 mmol/l (95-108); CREATININE 0.6 mg/dL (0.5-1.0); GFR FOR AFR.AMER. > 60 ML/MIN (>=60 (CALC)); GFR OTHER RACES > 60 ML/MIN (>=60 (CALC)); SODIUM 136 mmol/l (137-146)
[2023-10-12 07:52] LABS: BASO% 0.6 % (0-3); EOS% 1.4 % (0-8); HEMATOCRIT 47.8 % (37.0-47.0); HEMOGLOBIN 15.4 g/dl (12.0-16.0); IMMATURE GRANULOCYTES 0.3 % (0.0-5.0); LYMPH% 21.9 % (15-41); MEAN CELL VOLUME 88.2 fL CALC (80.0-100.0); MEAN CORPUSCULAR HGB 28.4 pG CALC (26.0-32.0); MEAN CORPUSCULAR HGB CONC 32.2 g/dL CAL (32.0-36.0); MONO% 11.8 % (2-13); NEUT# 6.23 thou/uL (2.00-7.15); RED BLOOD COUNT 5.42 mill/uL (4.20-5.60); RED CELL DISTRI WIDTH 14.2 % (11.5-15.5)
[2023-10-12 08:00] VITALS: BP 112/59
[2023-10-12 08:03] LABS: ANION GAP 16 (6-22 (CALC)); BUN 17 mg/dL (8-23); BUN/CREATININE RATIO 27 (12-20 (CALC)); CARBON DIOXIDE 25 mmol/l (22-30); CHLORIDE 103 mmol/l (95-108); CREATININE 0.6 mg/dL (0.5-1.0); GFR FOR AFR.AMER. > 60 ML/MIN (>=60 (CALC)); GFR OTHER RACES > 60 ML/MIN (>=60 (CALC)); POTASSIUM 3.9 mmol/l (3.5-5.1); SODIUM 139 mmol/l (137-146)
[2023-10-12 20:09] VITALS: BP 132/61
[2023-10-13 04:42] VITALS: BP 138/56
[2023-10-13 04:42] LABS: BASO% 0.5 % (0-3); EOS% 1.7 % (0-8); IMMATURE GRANULOCYTES 0.1 % (0.0-5.0); MEAN CELL VOLUME 87.9 fL CALC (80.0-100.0); MEAN CORPUSCULAR HGB 28.4 pG CALC (26.0-32.0); MEAN CORPUSCULAR HGB CONC 32.3 g/dL CAL (32.0-36.0); MONO% 11.6 % (2-13); NEUT# 5.76 thou/uL (2.00-7.15); NEUT% 60.1 % (42-76); RED BLOOD COUNT 4.72 mill/uL (4.20-5.60); RED CELL DISTRI WIDTH 14.3 % (11.5-15.5)
[2023-10-13 04:43] LABS: HEMATOCRIT 41.5 % (37.0-47.0); HEMOGLOBIN 13.4 g/dl (12.0-16.0)
[2023-10-13 04:59] LABS: ANION GAP 9 (6-22 (CALC)); BUN 24 mg/dL (8-23); BUN/CREATININE RATIO 38 (12-20 (CALC)); CARBON DIOXIDE 27 mmol/l (22-30); CHLORIDE 104 mmol/l (95-108); CREATININE 0.6 mg/dL (0.5-1.0); GFR FOR AFR.AMER. > 60 ML/MIN (>=60 (CALC)); GFR OTHER RACES > 60 ML/MIN (>=60 (CALC)); POTASSIUM 3.9 mmol/l (3.5-5.1); SODIUM 137 mmol/l (137-146)
[2023-10-13 11:39] VITALS: BP 142/85
[2023-10-13 12:00] VITALS: BP 107/63
[2023-10-13 16:00] VITALS: BP 137/61
[2023-10-13 19:19] VITALS: BP 134/76
[2023-10-14] VITALS (8 sets, daily range): BP systolic 98–147; BP diastolic 63–93
[2023-10-14 05:58] LABS: BASO% 0.8 % (0-3); EOS% 1.8 % (0-8); HEMATOCRIT 43.5 % (37.0-47.0); IMMATURE GRANULOCYTES 0.3 % (0.0-5.0); LYMPH% 23.6 % (15-41); MEAN CELL VOLUME 88.2 fL CALC (80.0-100.0); MEAN CORPUSCULAR HGB 28.4 pG CALC (26.0-32.0); MEAN CORPUSCULAR HGB CONC 32.2 g/dL CAL (32.0-36.0); MONO% 11.2 % (2-13); NEUT# 4.63 thou/uL (2.00-7.15); NEUT% 62.3 % (42-76); RED BLOOD COUNT 4.93 mill/uL (4.20-5.60); RED CELL DISTRI WIDTH 14.1 % (11.5-15.5)
[2023-10-14 06:11] LABS: ANION GAP 13 (6-22 (CALC)); BUN 26 mg/dL (8-23); BUN/CREATININE RATIO 42 (12-20 (CALC)); CARBON DIOXIDE 26 mmol/l (22-30); CHLORIDE 106 mmol/l (95-108); CREATININE 0.6 mg/dL (0.5-1.0); GFR FOR AFR.AMER. > 60 ML/MIN (>=60 (CALC)); GFR OTHER RACES > 60 ML/MIN (>=60 (CALC)); POTASSIUM 4.2 mmol/l (3.5-5.1); SODIUM 140 mmol/l (137-146)
[2023-10-14] MEDS ORDERED: METOPROLOL SUCCINATE 50 MG/TAB PO SCH (09:00)
[2023-10-15] VITALS: BP 116/59
[2023-10-15 00:07] VITALS: BP 116/59
[2023-10-15 08:13] LABS: BASO% 0.5 % (0-3); EOS% 1.9 % (0-8); HEMATOCRIT 43.6 % (37.0-47.0); IMMATURE GRANULOCYTES 0.1 % (0.0-5.0); MEAN CELL VOLUME 89.2 fL CALC (80.0-100.0); MEAN CORPUSCULAR HGB 28.6 pG CALC (26.0-32.0); MEAN CORPUSCULAR HGB CONC 32.1 g/dL CAL (32.0-36.0); MONO% 10.5 % (2-13); NEUT# 4.92 thou/uL (2.00-7.15); RED BLOOD COUNT 4.89 mill/uL (4.20-5.60); RED CELL DISTRI WIDTH 13.9 % (11.5-15.5)
[2023-10-15 08:31] LABS: ANION GAP 10 (6-22 (CALC)); BUN 15 mg/dL (8-23); BUN/CREATININE RATIO 29 (12-20 (CALC)); CARBON DIOXIDE 30 mmol/l (22-30); CHLORIDE 106 mmol/l (95-108); CREATININE 0.5 mg/dL (0.5-1.0); GFR FOR AFR.AMER. > 60 ML/MIN (>=60 (CALC)); GFR OTHER RACES > 60 ML/MIN (>=60 (CALC)); POTASSIUM 3.9 mmol/l (3.5-5.1); SODIUM 142 mmol/l (137-146)
[2023-10-15] MEDS ORDERED: ATORVASTATIN CA40 MG PO (14:53)
[2023-10-15] MEDS ORDERED: ASPIRIN81 MG PO (14:53)
[2023-10-15] MEDS ORDERED: LOPRESSOR25 MG PO (14:53)
[2023-10-15] MEDS ORDERED: QUETIAPINE FUMA25 MG PO (14:54)
[2023-10-15 15:58] VITALS: BP 116/59
== END 2023-10-15 17:24 | disposition short-term general hospital (02) ==
LOC: ED 17:17 → ED-I 19:40 → ED 19:56 → MS2 19:57 → ICU 19:57 → MS2 10-10 20:53 → ICU 10-11 02:22
PROVIDERS: Nurse Practitioner; ADMIT Student in an Organized Health Care Education/Training Program; ATTEND Student in an Organized Health Care Education/Training Program
DX: R07.89 Other chest pain (principal); F03.911 Unspecified dementia, unspecified severity, with agitation; F03.94 Unspecified dementia, unspecified severity, with anxiety; I11.0 Hypertensive heart disease with heart failure; I50.9 Heart failure, unspecified; I48.91 Unspecified atrial fibrillation; I49.3 Ventricular premature depolarization; J44.9 Chronic obstructive pulmonary disease, unspecified; F32.A Depression, unspecified; E78.5 Hyperlipidemia, unspecified
CPT/HCPCS: G0378; J1650; J2060